=== PATIENT | male | born 1945 | race Two or more races ===

== ENCOUNTER 2017-10-01 08:14 | Day surgery (SDC) | payer MEDICARE, MEDICAID ==
--- NOTE | 2017-09-27 18:45 | Pre-Procedure Note/Attestation ---
Pre-Procedure Note/Attestation Complete Prior to Procedure Planned Procedure: bilateral Procedure Narrative: 1- Ptosis correction, upper lids 2- Entropion correction upper lids 3- Blepharoplasty, upper lids Indications for Procedure Pre-Operative Diagnosis: 1- Ptosis ,upper lids 2- Entropion, upper lids 3- Blepharochalasis,upper lids. Attestation I attest that I discussed the nature of the procedure; its benefits; risks and complications; and alternatives (and the risks and benefits of such alternatives ), prior to the procedure, with the patient (or the patient's legal novelties sales representative). I attest that, if there was a reasonable possibility of needing a blood transfusion, the patient (or the patient's legal novelties sales representative) was given the [place] [employer] standardized written summary, pursuant to the [place] Blood Safety Act ([place] Health and Safety Code # 1645, as amended). I attest that I re-evaluated the patient just prior to the surgery and that there has been no change in the patient's H&P, except as documented below: James Owens MD Sep 27, 2017 18:45
[2017-10-01] VITALS (7 sets, daily range): BP systolic 121–145; BP diastolic 70–85
[~2017-10-01] VITALS: Ht 167.6 cm; Wt 65.8 kg
[~2017-10-01 08:14] MED LIST: Akten 3.5% 1ml Btl BOTH EYES ONE; Maxitrol Opth Oint 3.5gm BOTH EYES ONE
[2017-10-01] MEDS ORDERED: Akten 3.5% 1ml Btl ONE (08:59)
--- NOTE | 2017-10-01 09:28 | Anethesia Preoperative Eval ---
Anesthesia Pre-op PMH/ROS General Date of Evaluation: Oct 01, 2017 Time of Evaluation: 11:06 Anesthesiologist: Neftali ASA Score: ASA 3 Mallampati Score Class I : Soft palate, uvula, fauces, pillars visible Class II: Soft palate, uvula, fauces visible Class III: Soft palate, base of uvula visible Class IV: Only hard plate visible Mallampati Classification: Class II Surgeon: Roman Diagnosis: Ptosis ,upper lids Surgical Procedure: Bilateral Blepharoplasty Anesthesia History: none Family History: no anesthesia problems Allergies: Coded Allergies: No Known Allergies (Verified Allergy, Unknown, 11/22/08) Medications: see eMAR Past Medical History Cardiovascular: Reports: HTN, CAD - Stent, [place], other - HL PSxH Narrative: LIH, Coronary Stent, BUCK Cataract Sx Anesthesia Pre-op Phys. Exam Physician Exam Last Vital Signs Date Time Temp Pulse Resp B/P (MAP) Pulse Ox O2 Delivery O2 Flow Rate FiO2 10/01/17 09:01 98.7 65 18 121/74 97 Room Air 98.7 Constitutional: NAD Neurologic: CN 2-12 intact Cardiovascular: RRR Respiratory: CTA Gastrointestinal: S/NT/ND Airway Exam Mallampati Score: Class II MO: limited ROM: limited Teeth: missing, intact Anesthesia Pre-op A/P Risk Assessment & Plan Assessment: ASA 3 Plan: GA Status Change Before Surgery: Yoel Clement MD Oct 01, 2017 09:28
[2017-10-01] MEDS ORDERED: ASPIR 8181 MG ORAL (09:38)
[2017-10-01] MEDS ORDERED: ATORVASTATIN CA80 MG ORAL (09:39)
[2017-10-01] MEDS ORDERED: METOPROLOL SUCC25 MG ORAL (09:39)
[2017-10-01] MEDS ORDERED: TIMOPTIC 0.25%1 DROP BOTH EYES (09:40)
[2017-10-01] MEDS ORDERED: CLOPIDOGREL75 MG ORAL (09:40)
[2017-10-01] MEDS ORDERED: VITAMIN D1000 UNI1 ORAL (09:41)
[2017-10-01] MEDS ORDERED: LISINOPRIL2.5 MG ORAL (09:41)
[2017-10-01] MEDS ORDERED: LR 1000ml 1,000 ML IVLG SCH (10:13)
[2017-10-01] MEDS ORDERED: Atropine Inj 1mg/10ml Syr IV PRN (10:15)
[2017-10-01] MEDS ORDERED: Midazolam 2mg/2ml Inj IVP PRN (10:15)
[2017-10-01] MEDS ORDERED: Metoclopramide 10mg/2ml Inj IVP PRN (10:15)
[2017-10-01] MEDS ORDERED: HYDROcodone/Acetamin 7.5/325 tab ORAL PRN (10:15)
[2017-10-01] MEDS ORDERED: LORazepam Inj 2mg/ml 1ml IV PRN (10:15)
[2017-10-01] MEDS ORDERED: Ketorolac 30mg Inj IV PRN ×2 (10:15)
[2017-10-01] MEDS ORDERED: oxyCODONE HCL/Acetaminophen 5/325mg ORAL PRN (10:15)
[2017-10-01] MEDS ORDERED: DiphenhydrAMINE 50mg/ml Inj IVP PRN (10:15)
[2017-10-01] MEDS ORDERED: fentaNYL 100 mcg/2 mL IV PRN (10:15)
[2017-10-01] MEDS ORDERED: Labetalol 5mg/ml 20ml vial IV PRN (10:15)
[2017-10-01] MEDS ORDERED: Hydromorphone 0.5mg/0.5ml inj IVP PRN (10:15)
[2017-10-01] MEDS ORDERED: Norco 5mg/325mg tab ORAL PRN (10:15)
--- NOTE | 2017-10-01 10:37 | Immediate Post-Op Evaluation ---
Immediate Post-Op Evalulation Immediate Post-Op Evalulation Procedure: Bilateral Blepharoplasty Date of Evaluation: Oct 01, 2017 Time of Evaluation: 13:00 IV Fluids: 900 LR Blood Products: 0 Estimated Blood Loss: 4 Urinary Output: 0 Blood Pressure Systolic: 137 Blood Pressure Diastolic: 74 Pulse Rate: 65 Respiratory Rate: 18 O2 Sat by Pulse Oximetry: 98 Temperature (Fahrenheit): 97.5 Pain Score (1-10): 2 Nausea: No Vomiting: No Complications 0 Patient Status: awake, reacts, patent, none Hydration Status: adequate Yoel Lindsay MD Oct 01, 2017 10:37
--- NOTE | 2017-10-01 10:38 | 48 Hour Post Anesthesia Eval ---
Post Anesthesia Evaluation Procedure: Bilateral Blepharoplasty Date of Evaluation: Oct 01, 2017 Time of Evaluation: 15:03 Blood Pressure Systolic: 143 0: 74 Pulse Rate: 64 Respiratory Rate: 18 Temperature (Fahrenheit): 98.2 O2 Sat by Pulse Oximetry: 99 Airway: patent Nausea: No Vomiting: No Pain Intensity: 2 Hydration Status: adequate Cardiopulmonary Status: Stable Mental Status/LOC: patient returned to baseline Follow-up Care/Observations: 0 Post-Anesthesia Complications: 0 Follow-up care needed: ready to discharge Yoel Lindsay MD Oct 01, 2017 10:37
[2017-10-01] MEDS ORDERED: Tetracaine 0.5% Opth 4ml Soln ONE (10:55)
[2017-10-01] MEDS ORDERED: Lidocaine 2% 20mg/ml/Epi 0.005mg/ml 20ml vial ONE (10:55)
[2017-10-01] MEDS ORDERED: Maxitrol Opth Oint 3.5gm ONE (10:55)
[2017-10-01] MEDS ORDERED: fentaNYL 100 mcg/2 mL IV ONE (11:00)
[2017-10-01] MEDS ORDERED: Propofol 200mg/20ml IV ONE (11:00)
[2017-10-01] MEDS ORDERED: Midazolam 2mg/2ml Inj ONE (11:00)
[2017-10-01] MEDS ORDERED: Lidocaine 1% MPF 10mg/ml 5ml ONE (11:00)
[2017-10-01] MEDS ORDERED: NS Irrig 1000ml ONE (11:00)
[2017-10-01] MEDS ORDERED: Sterile Water Irrig 1000ml IRRIG ONE (11:00)
[2017-10-01] MEDS ORDERED: LR 1000ml ONE (11:00)
[2017-10-01] MEDS ORDERED: Povidone-Iodine 5% opth solution ONE (11:21)
--- NOTE | 2017-10-01 12:50 | Discharge Summary ---
Discharge Summary Discharge Summary Discharge Summary DATE OF ADMISSION: 10/01/2017 DATE OF DISCHARGE: 10/01/2017 REASON FOR HOSPITALIZATION: 1- Ptosis, upper lids 2- Entropion, upper lids 3- Blepharochalasis OU SURGERY PERFORMED: 1- Ptosis correction, upper lids 2- Entropion correction, upper lids 3- Blepharoplasty, upper lids CONDITION IN THE HOSPITAL:The patient tolerated the surgery without complications. DISCHARGE CONDITION: The patient was stable at discharge. DISCHARGE MEDICATIONS: 1. Vigamox eye drops one drop q.i.d, OU 2. Prednisolone one drop q.i.d, OU 3. Maxitrol eye ointment apply to lids 4- Keflex 500mg 1 po q8h 5-[place] 5/325mg 1 po q6h PRN per pain POSTOPERATIVE ORDERS: The patient has to rest at home. No bending, No lifting, No watching Television tonight. POSTOPERATIVE FOLLOW UP: The patient will be followed in my office tomorrow morning at 7 o'clock. James Owens MD Oct 01, 2017 12:50
--- NOTE | 2017-10-01 12:53 | Brief Operative Note ---
Immediate Post Operative Note Operative Note Chief Complaint: Droopy eyelids, difficulty driving and reading Pre-op Diagnosis: 1- Ptosis ,upper lids 2- Entropion, upper lids 3- Blepharochalasis,upper lids. Procedure: 1- Ptosis correction, upper lids 2- Entropion correction, upper lids 3- Blepharoplasty, upper lids Post-op Diagnosis: same as pre-op Surgeon: James Owens MD Ed Teacher: None Additional Surgeons: None Anesthesiologist: Dr. Mo Anesthesia: local, MAC Specimen: none Complications: none Condition: stable Fluids: 500ml Estimated Blood Loss: minimal Drains: none Implant(s) used?: No James Owens MD Oct 01, 2017 12:53
--- NOTE | 2017-10-02 07:30 | Operative Note - Dictated ---
DATE OF OPERATION: 10/01/2017 FACILITY: [facility]. SURGEON: James Owens M.D. PHOTOCOMPOSING MACHINE OPERATOR: None. ANESTHESIOLOGIST: Yoel Lindsay M.D. ANESTHESIOLOGIST: Monitored anesthesia care (MAC) plus local anesthesia with lidocaine 2% and epinephrine 1:100,000. PREOPERATIVE DIAGNOSES: 1. Ptosis, upper lids. 2. Entropion, upper lids. 3. Dermatochalasis and blepharochalasis, upper lids. POSTOPERATIVE DIAGNOSES: 1. Ptosis, upper lids. 2. Entropion, upper lids. 3. Dermatochalasis and blepharochalasis, upper lids. SURGERY PERFORMED: 1. Ptosis correction, bilateral upper lids. 2. Entropion correction, upper lids. 3. Blepharoplasty, upper lids. INDICATIONS FOR SURGERY: The patient is a 72-year-old gentleman with history of high blood pressure, hypercholesterolemia, cardiovascular disease, coronary artery disease, hypertension, gynecomastia, vertigo, and hyperlipidemia. He is taking medications including Nitrostat, , aspirin, metoprolol, atorvastatin, clopidogrel, Humalog, and cholecalciferol (vitamin D3) with calcium. He is not allergic to any medication and he is not a drinker and he is not a smoker. He is complaining of blurry vision, droopy eye lids, and difficulty driving because of upper lid droopiness. He is suffering from severe blepharochalasis with ptosis and entropion in the upper lids. This is a progressive dermatochalasis skin disease with resulting change of corneal curvature, which and covering of his visual axis, which is interruption of driving. The severity of the patient's dermatochalasis, ptosis, and entropion are clearly demonstrated on the enclosed photos and the patient's visual jimenez. The only solution for the patient is correction of all those disfigurements and anatomy changes with surgery. There is no alternative. INFORMED CONSENT: The nature of the surgery, risks, benefits, and potential complications were all explained in detail to the patient in his language, Farsi. He voiced understanding and accepted all the complications. The potential complications including, but not limited to bleeding, infection, corneal exposure, overcorrection, undercorrection, ecchymosis, swelling of the face, hematoma, dry eye syndrome, loss of eye lashes, loss of eyebrows, inequality of both eyes, change in vision and loss of vision, and loss of the eye were all explained in detail to the patient in his language, Farsi, and he voiced understanding and accepted all the complications. Then, he signed the consent form, which is in the chart. DESCRIPTION OF SURGERY AND FINDINGS: Following that, the patient was taken to the operation room in a stable condition. Lidocaine gel [place] 3.5% were applied to the conjunctiva of both eyes. Following that, the upper lids were marked with a marking pen 18 mm above the root of the eyelashes and 15 mm below the lower part of the eyebrows. About 25 mm of the skin was left to facilitate eye closure. IV sedation was given by the anesthesiologist, Dr. Lindsay. After adequate anesthesia and sedation had been achieved, the upper eyelids and eyebrows were all anesthetized with 2% lidocaine with epinephrine. Following that, using a Bovie knife, the skin and subdermal tissue were dissected from the orbicularis ocular muscle and excised. A narrow cut was made into the orbicularis oculi muscle and two fat compartments were conservatively sculptured. Following that, the levator palpebrae superioris muscle were dissected to the aponeurosis of the muscle and the aponeurosis of the muscle was tacked 6 mm and stitched with 6-0 Vicryl on both sides. The stitches were trimmed and hemostasis was performed. Following that, a wedge groove was made 3 mm above the root of the upper eyelid lashes. Following that, the tarsal plate was grooved. The tarsal material inside the groove was excised with Vannas scissors. The lids of the groove was stitched together with 6-0 Vicryl. Then, the sutures were trimmed and hemostasis was performed. Then, following that, the orbicularis oculi muscles were stitched with 6-0 plain gut. Following that, and the skin was stitched with 6-0 plain gut in the fashion of stitches continuous running. The patient tolerated the surgery without complications. At the end of the surgery, Maxitrol eye ointment was applied to the wound. Following that, the patient was transferred to the recovery room. In the recovery room, cold compresses were applied . The wound was checked for bleeding, there was no bleeding. Postoperative orders and directions were given to the patient. The patient will be discharged home upon stabilization. The patient will be followed in my office tomorrow morning. James Owens M.D. DR: Vargas JOB#: [id number] CC:
== END 2017-10-01 14:20 | disposition home or self-care (01) ==
LOC: SUR 08:14
DX: H02.403 Unspecified ptosis of bilateral eyelids (principal); H02.004 Unspecified entropion of left upper eyelid; H02.001 Unspecified entropion of right upper eyelid; H02.834 Dermatochalasis of left upper eyelid; H02.831 Dermatochalasis of right upper eyelid; H02.34 Blepharochalasis left upper eyelid; H02.31 Blepharochalasis right upper eyelid; I10 Essential (primary) hypertension; I25.10 Atherosclerotic heart disease of native coronary artery without angina pectoris; I25.2 Old myocardial infarction; E78.5 Hyperlipidemia, unspecified; Z95.5 Presence of coronary angioplasty implant and graft; N62 Hypertrophy of breast; H53.8 Other visual disturbances
CPT/HCPCS: 15822; 67924; J2250; J2704; J3010; J7120; 94003; 94150